=== PATIENT | female | born 1965 | race Caucasian/White ===

== ENCOUNTER 2018-08-06 20:33 | Emergency (ER) | payer OTHER, SELFPAY ==
[2018-08-06 20:42] VITALS: BP 127/84; PULSE 68; RESP 18; TEMP 36.3; O2SAT 98; BMI 22.7
--- NOTE | 2018-08-06 20:46 | DI.RAD.S_ITS ---
PROCEDURE: XR ANKLE LT MIN 3V INDICATIONS: twisted it,pain TECHNIQUE: 3 views of the ankle were acquired. COMPARISON: None. FINDINGS: Bones: No fractures or dislocations. Ankle mortise is normally aligned. No suspicious bony lesions. Soft tissues: No tibiotalar joint effusion. Achilles tendon appears normal. IMPRESSION: No fracture. If the patient's pain or other symptoms persist, consider further evaluation with MRI Dictated by: Margarito Velásquez M.D. on 08/06/2018 at 21:15 Approved by: Margarito Velásquez M.D. on 08/06/2018 at 21:16
--- NOTE | 2018-08-06 21:53 | ED.LOWEXIN ---
HPI - Extremity Injury (Lower) General Chief Complaint: Extremity Injury, Lower Stated Complaint: LT ANKLE INJURY, PAIN Time Seen by Provider: 08/06/18 20:38 Source: patient Mode of arrival: ambulatory Limitations: no limitations History of Present Illness HPI Narrative: 53F nonsmoker is otherwise healthy and presents with severe L ankle pain after twisting it badly earlier today. She complains of worsening pain with ambulation and improvement with rest. She denies numbness tingling. MD complaint: ankle injury Onset (ago): hour(s) Type of Injury: inversion Place: home Severity: mild Relieving factors: rest Context: walking Associated symptoms: snap/pop sensation and swelling Other symptoms: none Related Data Previous Rx's Medication Instructions Recorded ibuprofen 800 mg PO TIDP #21 tab 01/21/17 hydroxyzine pamoate 25 mg PO Q6H PRN #90 cap 09/29/17 Review of Systems Constitutional Denies chills, Denies fever(s), Denies lethargy and Denies weakness Eyes Denies change in vision, Denies eye discharge, Denies irritation and Denies loss of vision ENT Ears, Nose, Mouth, and Throat: Denies change in voice, Denies neck pain and Denies sore throat Cardiovascular Denies chest pain, Denies irregular heart rhythm, Denies lightheadedness, Denies palpitations, Denies dyspnea, Denies dyspnea on exertion and Denies orthopnea Respiratory Denies cough, Denies dyspnea, Denies dyspnea on exertion and Denies wheezing Gastrointestinal Gastrointestinal: Denies abdominal pain, Denies change in bowel habits, Denies diarrhea, Denies nausea and Denies vomiting Genitourinary Denies hematuria, Denies flank pain, Denies urinary incontinence and Denies urinary urgency Musculoskeletal Reports joint swelling, Reports limited range of motion and Denies neck pain Integumentary/Breasts Denies pruritus, Denies erythema, Denies rash and Denies wounds Neurologic Denies confusion, Denies loss of vision and Denies weakness Psychiatric Denies anxiety, Denies confusion, Denies depression, Denies homicidal ideation and Denies suicidal ideation Endocrine Denies palpitations Hematologic/Lymphatic Denies easy bruising Allergic/Immunologic Denies wheezing PFSH Surgical History Status post hysteroscopy (05/06/16) Family History (Updated 05/19/14 @ 00:00 by Conversion Provider) Child Age: 21 Down's syndrome Grandmother Diabetes mellitus Mother Angiosarcoma Breast cancer Social History Smoking Status: Never smoker Family History Child Age: 21 Down's syndrome Grandmother Diabetes mellitus Mother Angiosarcoma Breast cancer Social History Smoking Status: Never smoker Exam Narrative Exam Narrative: GEN: AOx3 and in mild distress EYES: Pupils are equal, round, and reactive to light and accommodation. Extraoccular muscles are intact bilaterally. There is no subconjunctival hemorrhage or exudate. CHEST: Lungs are clear to auscultation bilaterally and free of wheezes, rales, or rhonchi. Heart rate is regular rhythm, there are no murmurs, clicks, rubs, or gallops. There is no chest wall tenderness. ABD: Abdomen is soft and nontender. There is no guarding or rebound. Bowel sounds are normal in all 4 quadrants. There is no mass or organomegaly. EXT: Full but painful range of motion of the left ankle with maximal tenderness at the lateral malleolus and anterior talofibular. No obvious external manifestation of injury. No 0 4 for injury is closed, isolated and neurovascularly intact SKIN: Warm, pink, and dry. No erythema or rash Initial Vital Signs Initial Vital Signs: Vital Signs Temperature 97.3 F L 08/06/18 20:42 Pulse Rate 68 08/06/18 20:42 Respiratory Rate 18 08/06/18 20:42 Blood Pressure 127/84 08/06/18 20:42 Pulse Oximetry 98 08/06/18 20:42 Procedures Orthopedic Splinting/Casting Injury #1: Side: left Lower Extremity Injury Location: ankle Lower Extremity Immobilizer: stirrup splint Other Orthopedic Equipment: crutches Post splinting neuro exam: intact Post splinting vascular exam: intact Placed by: Nursing Course Orders Ordered: Discontinued Medications Hydrocodone Bitart/Acetaminophen (Vicodin Prepack) 1 bottle MISC SEEINSTR ONE Stop: 08/06/18 22:01 Last Admin: 08/06/18 22:25 Dose: 1 bottle Vital Signs - 8 hr 08/06/18 20:42 Temperature 97.3 F L Pulse Rate 68 Respiratory Rate 18 Blood Pressure 127/84 Pulse Oximetry 98 MDM - Extremity Injury (Lower) Imaging Data Ankle Xray: Radiologist's impression: [address] [address] XRay Report Signed Patient: Americo Farmer GMR#: [id number] : 1965Acct:[id number] Age/Sex: 53 / FDate of Service: 08/06/18 Loc: ED Accession Number: [id number] Procedure: XR ankle LT min 3V Ordering Provider: Hunter Mejia D.O. PROCEDURE: XR ANKLE LT MIN 3V INDICATIONS: twisted it,pain TECHNIQUE: 3 views of the ankle were acquired. COMPARISON: None. FINDINGS: Bones: No fractures or dislocations. Ankle mortise is normally aligned. No suspicious bony lesions. Soft tissues: No tibiotalar joint effusion. Achilles tendon appears normal. IMPRESSION: No fracture. If the patient's pain or other symptoms persist, consider further evaluation with MRI Discharge Plan Departure Patient Disposition: Home Clinical Impression: Ankle sprain Qualifiers: Encounter type: initial encounter Involved ligament of ankle: anterior talofibular ligament Laterality: left Qualified Code(s): S93.492A - Sprain of other ligament of left ankle, initial encounter Discharge Date/Time: 08/06/18 22:40 Interventions: ED Discharge Assessment Last Done: 08/06/18 22:39 Instructions: DI for Ankle Sprain Activity Restrictions/Additional Instructions: *You have been diagnosed with [left ankle sprain] *What to do: *Take medications as directed. Your x-ray has been read by radiologist and shows no fracture. Given the amount of pain you're having your discharge instructions include nonweightbearing until follow-up. This means no weight at all placed on it or injured foot and ankle *Follow up with your primary care provider in 5-7 days, call for an appointment. Let them know you were seen in the Emergency Department and that we ask that you be seen in follow up *Return to ER if you should have any new, worsening or concerning symptoms Prescriptions: No Action ibuprofen 800 MG tablet 800 mg PO TIDP Qty: 21 RF: 0 hydroxyzine pamoate 25 mg capsule 25 mg PO Q6H PRNQty: 90 RF: 1 Referrals: Sneha Marina ARNP [Primary Care Provider] -
[2018-08-06] MEDS: HYDROCODONE/ACET 5/325 PREPACK 1 BOTTLE MISC (22:25)
== END 2018-08-06 22:40 | disposition home or self-care (01) ==
PROVIDERS: Emergency Provider Emergency Medicine; Family Provider Internal Medicine; PCP Internal Medicine
DX: S93.492A Sprain of other ligament of left ankle, initial encounter (principal)
CPT/HCPCS: 29540; 73610; 99283

== ENCOUNTER → 2019-11-23 08:17 | Outpatient (CLI) | payer OTHER, SELFPAY ==
[2019-11-23 09:49] LABS: Add Manual Diff / Slide Review NO; Basophils Absolute Auto 0 /uL (0-100); Basophils Percent Auto 0.2 % (0-2); Eosinophils Absolute Auto 100 /uL (0-450); Eosinophils Percent Auto 2.4 % (2-4); Hematocrit 43.1 % (36-46); Hemoglobin 14.5 g/dL (12.0-16.0); Lymphocytes Absolute Auto 1400 /uL (1100-4500); Lymphocytes Percent Auto 30.3 % (25-40); Mean Corpuscular HGB Conc 33.6 % (30-36); Mean Corpuscular Hemoglobin 30.6 PG (26-34); Mean Corpuscular Volume 91.1 fL (80-100); Monocytes Absolute Auto 400 /uL (0-900); Monocytes Percent Auto 9.3 % (3-14); Neutrophils Absolute Auto 2700 /uL (1500-7000); Neutrophils Percent Auto 57.8 % (50-75); Platelet Count 238 X10^3/uL (150-400); Red Blood Cell Count 4.73 X10^6/uL (4.0-5.2); Red Cell Distribution Width 13.7 % (11.6-14.8); White Blood Cell Count 4.6 X10^3/uL (4.5-11.0)
[2019-11-23 09:59] LABS: Alanine Aminotransferase 53 IU/L (<35); Albumin 4.6 g/dL (3.5-5.0); Albumin Globulin Ratio 1.2 (1.0-2.8); Alkaline Phosphatase 85 U/L (38-126); Aspartate Aminotransferase 48 IU/L (14-36); BUN Creatinine Ratio 23.9 (6-22); Bilirubin Total 0.6 mg/dL (0.2-1.3); Blood Urea Nitrogen 17 mg/dL (7-17); Calcium 9.5 mg/dL (8.4-10.2); Carbon Dioxide 30 mmol/L (22-32); Chloride 103 mmol/L (98-107); Estimated Glomerular Filt Rate > 60.0 mL/min (>60); Globulin 3.8 g/dL (1.7-4.1); Glucose 87 mg/dL (70-100); HEMOLYSIS < 15 (0-50); Potassium 3.9 mmol/L (3.4-5.1); Sodium 139 mmol/L (137-145); Total Protein 8.4 g/dL (6.3-8.2)
[2019-11-23 10:00] LABS: Erythrocyte Sedimentation Rate 4 MM/HR (0-20)
[2019-11-23 10:03] LABS: C-Reactive Protein Quant < 0.5 mg/dL (<1.0)
[2019-11-25 18:36] LABS: ANA Screen, IFA Positive (.)
== END ==
PROVIDERS: Family Provider Internal Medicine; PCP Internal Medicine; Referring Provider Internal Medicine; Visit Provider Internal Medicine
DX: Z86.2 Personal history of diseases of the blood and blood-forming organs and certain disorders involving the immune mechanism (principal); L29.8 Other pruritus; L29.9 Pruritus, unspecified; L50.9 Urticaria, unspecified
CPT/HCPCS: 36415; 80053; 85025; 85651; 86038; 86140; 86200

== ENCOUNTER → 2020-03-03 08:40 | Outpatient (CLI) | payer OTHER, SELFPAY ==
--- NOTE | 2020-03-03 08:44 | DI.RAD.S_ITS ---
PROCEDURE: XR FINGER LT MIN 2V INDICATIONS: LT THUMB PAIN AND POPPING TECHNIQUE: AP hand, 2 views of the 1st finger(s) acquired. COMPARISON: None. FINDINGS: Bones: No fractures or dislocations. No suspicious bony lesions. Soft tissues: No suspicious soft tissue calcifications. IMPRESSION: Normal for age, source of current instability symptoms is not seen. Dictated by: Michael March M.D. on 03/03/2020 at 10:03 Approved by: Michael March M.D. on 03/03/2020 at 10:03
== END ==
PROVIDERS: Family Provider Internal Medicine; PCP Internal Medicine; Referring Provider Internal Medicine; Visit Provider Internal Medicine
DX: M79.645 Pain in left finger(s) (principal); R29.898 Other symptoms and signs involving the musculoskeletal system
CPT/HCPCS: 73140

== ENCOUNTER → 2020-04-28 08:59 | Outpatient (CLI) | payer OTHER, SELFPAY ==
[2020-04-28] MEDS: COVID-19 VACC #1, MRNA(MOD) 100 MCG/0.5 ML VIAL IM (09:08)
== END ==
PROVIDERS: Family Provider Internal Medicine; PCP Internal Medicine; Visit Provider Internal Medicine
DX: Z23 Encounter for immunization (principal)
CPT/HCPCS: 0011A; 91301

== ENCOUNTER → 2020-05-26 08:59 | Outpatient (CLI) | payer OTHER, SELFPAY ==
[2020-05-26] MEDS: COVID-19 VACC #2, MRNA(MOD) 100 MCG/0.5 ML VIAL IM (09:06)
== END ==
PROVIDERS: Family Provider Internal Medicine; PCP Internal Medicine; Visit Provider Internal Medicine
DX: Z23 Encounter for immunization (principal)
CPT/HCPCS: 0012A; 91301

== ENCOUNTER 2020-07-20 12:51 | Emergency (ER) | payer OTHER, SELFPAY ==
[2020-07-20 13:02] VITALS: BP 98/64; PULSE 81; RESP 16; TEMP 36.8; O2SAT 99; BMI 23.5
[2020-07-20] MEDS: KETOROLAC 60 MG/2 ML VIAL 30 MG IV (13:40)
[2020-07-20] MEDS: SODIUM CHLORIDE 0.9% 1,000 ML 1000 ML IV (13:40)
--- NOTE | 2020-07-20 13:47 | DI.RAD.S_ITS ---
PROCEDURE: XR ANKLE LT 2V INDICATIONS: dog bite TECHNIQUE: 3 views of the ankle were acquired. COMPARISON: None. FINDINGS: Bones: No fractures or dislocations. Ankle mortise is normally aligned. No suspicious bony lesions. Soft tissues: No tibiotalar joint effusion. Achilles tendon appears normal. No radiodense foreign bodies. Small amount of soft tissue gas noted in the anterior juxta-articular soft tissues near reported puncture site. IMPRESSION: No fracture. No osseous lesion. If symptoms and/or clinical suspicion for pathology persists, further assessment with repeat radiographs (7-10 days) or advanced imaging (e.g. CT, MRI or bone scan) should be considered. No radiodense foreign body. Nonspecific soft tissue gas which could be related to puncture wound or infectious process. Dictated by: Tish Donaldson MD, PhD on 07/20/2020 at 14:15 Approved by: Tish Donaldson MD, PhD on 07/20/2020 at 14:16
[2020-07-20 14:04] VITALS: BP 108/66
[2020-07-20 14:05] VITALS: PULSE 64; RESP 20; O2SAT 98
--- NOTE | 2020-07-20 14:21 | ED.LOWEXIN ---
HPI - Extremity Injury (Lower) General Chief Complaint: Extremity Injury, Lower Stated Complaint: dog bite on top of left foot Time Seen by Provider: 07/20/20 13:26 Source: patient Mode of arrival: Wheelchair Limitations: no limitations History of Present Illness HPI Narrative: Patient is a 55-year-old female who presents with dog bite to the left ankle. She got extremely clammy lightheaded and hypotensive in the triage room and passed out briefly. Her foot and ankle are extremely sensitive to touch. states that was bleeding quite a lot but the bleeding now seems to be controlled. It was her friend's pit bull. Apparently she has not seen the dog in about a year. Initially the dog was friendly and then suddenly attacked the left ankle. MD complaint: ankle injury Related Data Previous Rx's Medication Instructions Recorded ibuprofen 800 mg PO TIDP #21 tab 01/21/17 hydroxyzine pamoate 25 mg PO Q6H PRN #90 cap 09/29/17 amoxicillin-pot clavulanate 1 tab PO Q12H #14 tab 07/20/20 [Augmentin] tramadol 50 mg PO Q6H PRN #10 tab 07/20/20 Allergies Allergy/AdvReac Type Severity Reaction Status Date / Time No Known Drug Allergies Allergy Verified 07/20/20 13:05 Review of Systems Review of Systems Narrative: GENERAL: Denies chills,fever HEENT: Denies throat pain RESPIRATORY: Denies dyspnea, cough, wheezing CARDIOVASCULAR: Denies chest pain, palpitations GASTROINTESTINAL: Denies nausea, vomiting MUSCULOSKELETAL: Denies extremity pain, injury SKIN: Puncture wounds left ankle NEUROLOGIC: Denies weakness, dizziness, headache, numbness 8 point review of systems is negative except for those stated above and HPI Patient History Surgical History Status post hysteroscopy (05/06/16) Family History Child Age: 23 Down's syndrome Grandmother Diabetes mellitus Mother Angiosarcoma Breast cancer Social History Smoking Status: Never smoker Smoking Status: Never smoker alcohol intake frequency: a few times a month Substance Use Type: does not use Exam Initial Vital Signs Initial Vital Signs: Vital Signs Temperature 98.3 F 07/20/20 13:02 Pulse Rate 81 07/20/20 13:02 Respiratory Rate 16 07/20/20 13:02 Blood Pressure 98/64 07/20/20 13:02 Pulse Oximetry 99 07/20/20 13:02 GENERAL: Pale week 55-year-old female slightly diaphoretic HEENT: Head atraumatic,EOMI, pupils reactive, face symmetric, [moist] mucous membranes CARDIOVASCULAR: Regular rate and rhythm without murmurs, rubs or gallops. RESPIRATORY: Breath sounds equal bilaterally, no wheezes rales or rhonchi. EXTREMITIES: Normal range of motion, no clubbing or edema. Neurovascularly intact. Left distal pedal pulse in talked she able to flex her ankle although it is decreased secondary to pain. She is able to move her big toes without any difficulty. NEUROLOGICAL: Alert and oriented x4.Normal gait and speech. Cranial nerves II through XII grossly intact. SKIN: Left ankle puncture wounds the largest measuring 2 cm gaping with adipose tissue exposed bleeding controlled Procedures Laceration Repair Laceration 1: Site: lower extremity Side (If applicable): left Size (cm): 2 Description: stellate Depth: simple, single layer Local Anesthetic: lidocaine 1% Amount of anesthesia used (mL): 2 Pre-repair: wound explored, irrigated extensively and deep structures intact Skin layer closed with: nylon Size (cm): 4-0 Number of sutures: 1 Technique: simple, interrupted Course Orders Ordered: ED Orders 07/20/20 13:26 Complete Blood Count AUTO DIFF Stat Comprehensive Metabolic Panel Stat 07/20/20 13:47 XR ankle LT 2V Stat Discontinued Medications Bacitracin (Bacitracin Oint 0.9 Gm Pckt) 1 applic TOP NOW ONE Stop: 07/20/20 15:08 Last Admin: 07/20/20 15:10 Dose: 1 applic Documented by: XAVI Sodium Chloride (Normal Saline 0.9%) 1,000 mls @ 1,000 mls/hr IV BOLUS ONE Stop: 07/20/20 14:25 Last Infusion: 07/20/20 14:11 Dose: 0 mls/hr Documented by: Admin: 07/20/20 13:40 Dose: 1,000 mls/hr Documented by: XAVI Ibuprofen (Ibuprofen 400 Mg Tablet) 800 mg PO NOW ONE Stop: 07/20/20 13:16 Last Admin: 07/20/20 13:35 Dose: Not Given Documented by: RSGISELLE Ketorolac Tromethamine (Ketorolac 60 Mg/2 Ml Vial) 30 mg IV NOW ONE Stop: 07/20/20 13:38 Last Admin: 07/20/20 13:40 Dose: 30 mg Documented by: RSGISELLE Lidocaine HCl (Lidocaine 1% (Pf)) 4 ml SUBCUT NOW ONE Stop: 07/20/20 14:22 Last Admin: 07/20/20 14:38 Dose: 4 ml Documented by: BTONER Tetanus/Diphtheria Toxoids (Tetanus Diphtheria Toxoids 0.5 Ml Vial) 0.5 ml IM .ONCE ONE Stop: 07/20/20 15:19 Last Admin: 07/20/20 15:24 Dose: 0.5 ml Documented by: RSGISELLE Vital Signs Vital signs: Vital Signs - 8 hr 07/20/20 13:02 07/20/20 14:04 07/20/20 14:05 Temperature 98.3 F Pulse Rate 81 64 Respiratory Rate 16 20 Blood Pressure 98/64 108/66 Pulse Oximetry 99 98 07/20/20 14:30 07/20/20 15:00 07/20/20 15:30 Temperature Pulse Rate 68 64 65 Respiratory Rate 16 Blood Pressure 104/58 L 104/65 107/65 Pulse Oximetry 100 100 100 MDM - Extremity Injury (Lower) Imaging Data Extremity x-ray #1: Radiologist's Impression: PROCEDURE: XR ANKLE LT 2V INDICATIONS: dog bite TECHNIQUE: 3 views of the ankle were acquired. COMPARISON: None. FINDINGS: Bones: No fractures or dislocations. Ankle mortise is normally aligned. No suspicious bony lesions. Soft tissues: No tibiotalar joint effusion. Achilles tendon appears normal. No radiodense foreign bodies. Small amount of soft tissue gas noted in the anterior juxta-articular soft tissues near reported puncture site. IMPRESSION: No fracture. No osseous lesion. If symptoms and/or clinical suspicion for pathology persists, further assessment with repeat radiographs (7-10 days) or advanced imaging (e.g. CT, MRI or bone scan) should be considered. No radiodense foreign body. Nonspecific soft tissue gas which could be related to puncture wound or infectious process. Dictated by: Tish Donaldson MD, PhD on 07/20/2020 at 14:15 MDM Narrative Medical decision making narrative: The patient has crutches at home. I suspect that she had a vasovagal reaction possibly related to anxiety when she initially came in. Her blood pressure certainly did decrease and she was quite pale at however it quickly improved. She also is extremely sensitive to touch initially however ask her anxiety improved I was able to palpate and move the ankle more. She tolerated lidocaine and numbing injection very well. Discharge Plan Departure Patient Disposition: Home Clinical Impression: Dog bite Qualifiers: Encounter type: initial encounter Qualified Code(s): W54.0XXA - Bitten by dog, initial encounter Instructions: DI for Dog Bite Activity Restrictions/Additional Instructions: *You have been diagnosed with dog bite left ankle *What to do: Have suture removed in about 5-7 days is may be put antibiotic ointment over the area. Expected to be sore his. Elevate and ice use crutches as needed. There are no broken bones. *Continue to take medications as directed--> SENT TO [facility] Augmentin 875 mg twice a day for 7 days Tramadol 50 mg every 6 hours if needed for severe pain Tylenol 1000 mg every 6 hours if needed for aujh-um-eyczduro pain *Follow up with your primary care provider in 2-3 days *Return to ER if you should have redness pus swelling increasing pain decreased range of motion or any new, worsening or concerning symptoms Prescriptions: New amoxicillin-pot clavulanate [Augmentin] 875-125 mg tablet 1 tab PO Q12H Qty: 14 RF: 0 tramadol 50 mg tablet 50 mg PO Q6H PRN (Reason: pain) Qty: 10 RF: 0 No Action ibuprofen 800 MG tablet 800 mg PO TIDP Qty: 21 RF: 0 hydroxyzine pamoate 25 mg capsule 25 mg PO Q6H PRNQty: 90 RF: 1 Referrals: Sneha Marina ARNP [Primary Care Provider] -
[2020-07-20 14:30] VITALS: BP 104/58; PULSE 68; O2SAT 100
[2020-07-20] MEDS: LIDOCAINE 1% (PF) 4 ML SUBCUT (14:38)
[2020-07-20 15:00] VITALS: BP 104/65; PULSE 64; O2SAT 100
[2020-07-20] MEDS: BACITRACIN OINT 0.9 GM PCKT 1 APPLIC TOP (15:10)
[2020-07-20] MEDS: TETANUS DIPHTHERIA TOXOIDS 0.5 ML VIAL IM (15:24)
[2020-07-20 15:30] VITALS: BP 107/65; PULSE 65; RESP 16; O2SAT 100
--- NOTE | 2020-07-20 19:51 | PC.NURSE ---
late entry-stepped away from triage to check on a room for the patient, came back and patient was pale and was holding her head up, attempted to wake patient, checked vitals and bp was 57/27 and 49 hr. got assistance from another rn to move patient into a room/bed. dr pickard arrived to room. pt came to at that point. bp check and 87/50. iv established and iv fluids were started. pt color returned as well. report given to alexia still.
== END 2020-07-20 15:54 | disposition home or self-care (01) ==
PROVIDERS: Emergency Provider Emergency Medicine; Family Provider Internal Medicine; PCP Internal Medicine
DX: S91.052A Open bite, left ankle, initial encounter (principal); W54.0XXA Bitten by dog, initial encounter; Z23 Encounter for immunization
CPT/HCPCS: 12001; 73600; 90471; 90714; 96361; 96374; 99283; 99284; J1885

== ENCOUNTER → 2021-03-20 10:50 | Outpatient (CLI) | payer OTHER, SELFPAY ==
--- NOTE | 2021-03-20 10:53 | DI.RAD.S_ITS ---
PROCEDURE: XR HIP W PEL IF DONE LT 2V INDICATIONS: LT HIP PAIN TECHNIQUE: AP pelvis with lateral view of the left hip. COMPARISON: [facility], , PELVIS 1 OR 2 VIEWS, 06/20/2015, 12:07. FINDINGS: Bones: No acute fractures or dislocations. Pelvic ring appears intact. No suspicious bony lesions. Mild joint space narrowing is seen in the superior left hip. Soft tissues: The visualized bowel gas pattern is normal. No suspicious soft tissue calcifications. IMPRESSION: No acute osseous abnormality. Mild left hip osteoarthrosis. If the symptoms persist, consider cross sectional imaging such as MRI or CT for further assessment. Dictated by: Darin Hou M.D. on 03/20/2021 at 13:50 Approved by: Darin Hou M.D. on 03/20/2021 at 13:52
== END ==
PROVIDERS: Family Provider Internal Medicine; PCP Internal Medicine; Referring Provider Internal Medicine; Visit Provider Internal Medicine
DX: M25.552 Pain in left hip (principal); M16.12 Unilateral primary osteoarthritis, left hip
CPT/HCPCS: 73502

== ENCOUNTER → 2021-04-21 08:25 | Outpatient (CLI) | payer OTHER, SELFPAY ==
--- NOTE | 2021-04-21 | DI.MRI.S_ITS ---
PROCEDURE: MR HIP LT WO CON INDICATIONS: Pain in left hip TECHNIQUE: Noncontrast coronal T1 spin echo and STIR through the bony pelvis. Coronal and axial T2 fast spin echo with fat saturation, sagittal T1 spin echo, and oblique axial T2 fast spin echo with fat saturation through the hip. COMPARISON: None. FINDINGS: Image quality: Excellent. Bones and joints: Patchy T2 hyperintense signal within the anterior superior acetabulum, compatible with degenerative change/osteochondral injury. No intraosseous lesions or fractures. No avascular necrosis of the femoral heads. Tendons and ligaments: The gluteus medius and minimus tendons appear intact, without associated muscle atrophy. T2 hyperintense signal is seen at the gluteus medius/minimus attachment, compatible with mild trochanteric bursitis. The nearby proximal iliotibial band also appears intact. The iliopsoas tendon appears intact, without adjacent bursal fluid collections or evidence for impingement syndrome. The origin of the hamstring tendon is intact at the ischial tuberosity. Minimal T2 hyperintense signal is seen within the hamstring origin attachment, compatible with tendinopathy. The ligamentum teres appears intact but demonstrates T2 hyperintense signal at the foveal attachment. Labrum and cartilage: Deficiency of the anterior, superior labrum with intrasubstance signal, compatible with degenerative tear. Signal heterogeneity and thinning of the hyaline cartilage, most prominent in the superior aspect of the acetabulum. The alpha angle of the femur is within normal limits at less than 55 degrees. Soft tissues: Visualized muscles demonstrate normal bulk and internal signal. Quadratus femoris muscle demonstrates no internal edema to suggest ischiofemoral impingement. The proximal sciatic neurovascular bundle appears normal adjacent to the hamstring tendons. No free pelvic fluid. Bladder wall thickness is normal. Genitourinary structures and bowel loops appear normal where visualized. IMPRESSION: 1. 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 2. Mild trochanteric bursitis. 3. Mild hamstring origin attachment tendinopathy. 4. Injury of the ligamentum teres as detailed above. 5. Anterior, superior degenerative tear of the labrum. Dictated by: Carlitos Faria M.D. on 04/23/2021 at 9:17 Approved by: Carlitos Faria M.D. on 04/23/2021 at 9:25
== END ==
PROVIDERS: Family Provider Internal Medicine; PCP Internal Medicine; Referring Provider Internal Medicine; Visit Provider Internal Medicine
DX: M25.552 Pain in left hip (principal); M16.12 Unilateral primary osteoarthritis, left hip; M70.62 Trochanteric bursitis, left hip; S73.102A Unspecified sprain of left hip, initial encounter; S79.912A Unspecified injury of left hip, initial encounter
CPT/HCPCS: 73721

== ENCOUNTER → 2021-07-23 08:31 | Outpatient (CLI) | payer OTHER, SELFPAY ==
--- NOTE | 2021-07-23 08:34 | DI.MG.S_ITS ---
BILATERAL DIGITAL SCREENING MAMMOGRAM 3D/2D WITH CAD: 07/23/2021 CLINICAL: Routine screening. Family history of breast cancer. Comparison is made to exam dated: 07/01/2017 mammogram - [facility]. The tissue of both breasts is heterogeneously dense. This may lower the sensitivity of mammography. Current study was also evaluated with a Computer Aided Detection (CAD) system. No significant masses, calcifications, or other findings are seen in either breast. There has been no significant interval change. IMPRESSION: NEGATIVE There is no mammographic evidence of malignancy. A 1 year screening mammogram is recommended. This exam was interpreted at Station ID: [id number]. NOTE: For mammograms, a report in lay terms will be sent to the patient. Approximately 15% of breast malignancies will not be visualized mammographically. In the management of a palpable breast mass, a negative mammogram must not discourage biopsy of a clinically suspicious lesion. Electronically Signed By: Collette antonio/nandini:07/23/2021 09:54:21 copy to: [facility], ph: [phone], fax: [phone] letter sent: Normal Exam ACR BI-RADS Category 1: Negative [id number]
== END ==
PROVIDERS: Family Provider Internal Medicine; PCP Internal Medicine; Referring Provider Internal Medicine; Visit Provider Internal Medicine
DX: Z12.31 Encounter for screening mammogram for malignant neoplasm of breast (principal); Z80.3 Family history of malignant neoplasm of breast
CPT/HCPCS: 77063; 77067